=== PATIENT | male | born 1990 | race African-American/Black ===

== ENCOUNTER 2021-03-19 22:29 | Emergency (ER) | payer SELFPAY ==
[~2021-03-19] VITALS: Ht 193 cm; Wt 129.5 kg
[~2021-03-19 22:29] MED LIST: GRIS500T6 PO; NO HOME MEDS; SELE180S4 TP
[2021-03-19 22:33] VITALS: BP 125/89
[2021-03-19] MEDS ORDERED: ketorolac trometh inj. 60 MG/2 ML VIAL IM ONE (23:00)
[2021-03-19] MEDS ORDERED: HYDR-3965 PO (23:16)
[2021-03-19] MEDS ORDERED: PENI250T2 PO (23:16)
[2021-03-19] MEDS ORDERED: PRED20TA PO (23:16)
[2021-03-19] MEDS ORDERED: LIDO20SO16 PO (23:16)
== END 2021-03-19 23:50 | disposition home or self-care (01) ==
LOC: ER 22:30 → EEVIPCON 22:30 → ER 23:50
DX: S02.5XXA Fracture of tooth (traumatic), initial encounter for closed fracture (principal); K08.89 Other specified disorders of teeth and supporting structures; Z79.2 Long term (current) use of antibiotics; Z79.899 Other long term (current) drug therapy; X58.XXXA Exposure to other specified factors, initial encounter; Y93.89 Activity, other specified; Y92.89 Other specified places as the place of occurrence of the external cause; Y99.8 Other external cause status
CPT/HCPCS: 96372; 99283; J1885

== ENCOUNTER 2024-08-12 00:46 | Emergency (ER) | payer OTHER ==
[~2024-08-12] VITALS: Ht 190.5 cm; Wt 120.5 kg
[~2024-08-12 00:46] MED LIST changes: +LIDO20SO16 PO
[2024-08-12 00:51] VITALS: BP 117/88; PULSE 72; TEMP 98.6; O2SAT 98
[2024-08-12 01:19] LABS: BASOPHILS # (AUTO) 0.1 X10'3 (0-0.2); BASOPHILS % (AUTO) 1.1 % (0-1); EOSINOPHILS # (AUTO) 0.4 X10'3 (0-0.9); EOSINOPHILS % (AUTO) 8.1 % (0-6); HEMATOCRIT 41.6 % (42.0-52.0); HEMOGLOBIN 13.7 g/dl (14.0-17.9); LYMPHOCYTES # (AUTO) 2.7 X10'3 (1.1-4.8); LYMPHOCYTES % (AUTO) 49.9 % (21-51); MEAN CORPUSCULAR VOLUME 84.9 FL (78-98); MEAN PLATELET VOLUME 6.8 FL (7.4-10.4); MONOCYTES # (AUTO) 0.4 X10'3 (0-0.9); MONOCYTES % (AUTO) 7.1 % (2-12); NEUTROPHILS # (AUTO) 1.8 X10'3 (1.8-7.7); NEUTROPHILS % (AUTO) 33.8 % (42-75); PLATELET COUNT 267 X10'3 (140-440); RED CELL DISTRIBUTION WIDTH 12.7 % (11.5-14.5); WHITE BLOOD COUNT 5.4 X10'3 (4.5-11.0)
[2024-08-12 01:29] LABS: ALBUMIN 4.3 G/DL (3.4-5.0); ANION GAP 9 (8-16); BLOOD UREA NITROGEN 9 MG/DL (7-18); BUN/CREATININE RATIO 9.4 (10.0-20.0); CHLORIDE 102 MMOL/L (99-107); CREATININE 0.96 MG/DL (0.60-1.10); GLUCOSE 84 MG/DL (70-104); LIPASE 23 U/L (16-77); POTASSIUM 3.3 MMOL/L (3.5-5.1); SODIUM 137 MMOL/L (135-145); TOTAL CARBON DIOXIDE 26.2 MMOL/L (24-32); eCRCL 128 ML/MIN; eGFR > 90 ML/MIN
[2024-08-12 01:33] VITALS: RESP 16
[2024-08-12] MEDS ORDERED: DICY10CA88 PO (02:03)
[2024-08-12] MEDS ORDERED: ONDA-243 PO (02:03)
[2024-08-12] MEDS: dicyclomine 10 MG capsule PO ONE (02:04)
[2024-08-12] MEDS: ondansetron 4mg rapidly disintigrating tab PO ONE (02:04)
== END 2024-08-12 02:09 | disposition home or self-care (01) ==
LOC: ER 00:47
DX: R10.10 Upper abdominal pain, unspecified (principal); R11.2 Nausea with vomiting, unspecified
CPT/HCPCS: 36415; 80048; 83690; 85025; 99283

== ENCOUNTER 2025-08-02 04:51 | Emergency (ER) | payer BC ==
[~2025-08-02] VITALS: Ht 193 cm; Wt 120.6 kg
[~2025-08-02 04:51] MED LIST changes: +ONDA-243 PO
[2025-08-02 04:54] VITALS: TEMP 97.6
[2025-08-02 05:46] LABS: LEUKOCYTE ESTERASE ,URINE NEGATIVE (Neg); NITRITES, URINE NEGATIVE (Neg); OCCULT BLOOD,URINE NEGATIVE (Neg)
[2025-08-02 05:49] LABS: MEAN PLATELET VOLUME 7.4 FL (7.4-10.4); RED CELL DISTRIBUTION WIDTH 13.2 % (11.5-14.5)
[2025-08-02 05:58] LABS: CREATININE 0.72 MG/DL (0.60-1.10); TOTAL CARBON DIOXIDE 28.7 MMOL/L (24-32); eCRCL 174 ML/MIN; eGFR > 90 ML/MIN
[2025-08-02 05:59] LABS: UA COLLECTION TYPE CLN CATCH MIDSTREAM
--- NOTE | 2025-08-02 06:29 | Physician Documentation ---
History of Present Illness General Chief Complaint: Abdominal Pain Stated Complaint: SEE CHIEF COMPLAINT Time Seen by MD: 06:11 Primary Medical Doctor: None Mode of Arrival: Ambulatory History of Present Illness Initial Comments Patient is a 34-year-old male who complains of some intermittent abdominal pain and some dry mouth as well as a white tongue recently. The patient states his symptoms has been going on for last 3-4 days. Patient was concerned that he might have a fungal infection or other type of infection. The patient states he has had intermittent constipation and loose stool. The patient denies any fevers chills nausea or vomiting patient's symptoms are mild and persistent. Medication Reconciliation Allergies: Coded Allergies: No Known Allergies (Unverified , 08/02/25) Scheduled Griseofulvin,Microsize (Griseofulvin), 500 MG PO DAILY Lidocaine Hcl (Xylocaine Viscous), 5 ML PO Q2H PRN SORE THROAT Selenium Sulfide (Selsun Blue), 1 APPLIC TP DAILY Scheduled PRN ONDANSETRON ODT 4mg tablet (Ondansetron Odt), 1 TAB PO Q6H PRN PRN for nausea/vomiting Miscellaneous Medications Home Med List (No Home Medications), (Reported) Past Medical History Past Medical History: No Pertinent History Past Surgical History: no surgical history Alcohol Use: None Drug Use: none Lives with: Family Lives In: Home Occupation: employed Review of Systems All Other Systems at this time: Reviewed and Negative Physical Exam Physical Exam Vital Signs: Temperature: 97.6, Source: Temporal, Heart Rate: 67, Respiratory Rate: 16, BP: 127/83, Pulse Oximetry: 99, Weight: 120.600 Oxygen Flow Rate: 0 Physical Exam VITALS: Reviewed and as above. GENERAL: Alert, no apparent distress. HEENT: Normocephalic, atraumatic, PERRL, EOMI, dry mucosa, no erythema RESPIRATORY: Lungs clear, normal breath sounds, no respiratory distress. CHEST: No accessory muscle use, no retractions CV: Regular rate, rhythm, no edema, no murmur, No: JVD GI: Soft, non-tender, bowels sounds present, no rebound, guarding, or rigidity BACK: No CVA tenderness, or swelling MUSCULOSKELETAL: No deformities, no edema SKIN: Warm and dry, no rash NEURO: Oriented x4, No motor or sensory deficit PSYCH: Normal mood and affect, no agitation Progress Results/Orders Results/Orders Vital Signs 08/02/25 08/02/25 08/02/25 04:54 05:05 07:10 Temp 97.6 Pulse 67 74 Resp 16 16 16 B/P (MAP) 127/83 134/64 Pulse Ox 99 98 O2 Flow Rate 0 Laboratory Tests Test 08/02/25 05:19 White Blood Count 5.7 Red Blood Count 4.58 L Hemoglobin 12.8 L Hematocrit 38.4 L Mean Corpuscular Volume 83.8 Mean Corpuscular Hemoglobin 27.9 Mean Corpuscular Hemoglobin Concent 33.3 Red Cell Distribution Width 13.2 Platelet Count 237 Mean Platelet Volume 7.4 Neutrophils (%) (Auto) 43.4 Lymphocytes (%) (Auto) 43.9 Monocytes (%) (Auto) 7.9 Eosinophils (%) (Auto) 3.9 Basophils (%) (Auto) 0.9 Neutrophils # (Auto) 2.5 Lymphocytes # (Auto) 2.5 Monocytes # (Auto) 0.5 Eosinophils # (Auto) 0.2 Basophils # (Auto) 0.1 CBC Comment Urine Specimen Description Cln catch midstream Urine Color Straw Urine Clarity Clear Urine pH 6.0 Urine Specific [place] 1.010 Urine Protein Negative Urine Glucose (UA) Negative Urine Ketones Negative Urine Occult Blood Negative Urine Nitrite Negative Urine Bilirubin Negative Urine Urobilinogen 0.2 Urine Leukocyte Esterase Negative Urine Culture Indicated Not ind Volume Urine Centrifuged 10 ml Urine Comment Sodium Level 140 Potassium Level 3.8 Chloride Level 105 Carbon Dioxide Level 28.7 Anion Gap 6 L Blood Urea Nitrogen 8 Creatinine 0.72 Estimated GFR/1.73 m2 > 90 BUN/Creatinine Ratio 11.1 Glucose Level 83 Calcium Level 8.4 L Total Bilirubin 1.2 H Aspartate Amino Transf (AST/SGOT) 56 H Alanine Aminotransferase (ALT/SGPT) 43 Alkaline Phosphatase 66 Total Protein 7.9 Albumin 4.2 Globulin 3.7 Albumin/Globulin Ratio 1.1 Lipase 26 Chemistry Comments Medical Decision Making Additional information obtaine: old records Findings Patient with multiple complaints the patient complains of a white patchy tongue he has no patch on his tongue now his white tongue is likely related to dehydration he complains that that he was feeling dehydrated and having a dry mouth. The patient otherwise has a benign exam his previous hospitalizations has been reviewed his labs has been reviewed his pulse oximetry was interpreted as normal the patient will be advised to drink plenty of fluid and the patient will be discharged. Differential Diagnosis Thrush, gastritis GERD Departure Time of Disposition: 07:06 Disposition: 01 HOME / SELF CARE / HOMELESS Impression: Primary Impression: Dehydration Discharge Instructions: Abdominal Pain (Nonspecific), Dehydration, Adult Referrals: NO PRIMARY CARE PROVIDER (PCP) Signature Scribe Signature: no scribe Attestation: The note accurately reflects work and decisions made by me.Lisa Rangel MD 08/03/25 06:36 LISA RANGEL MD Aug 02, 2025 06:29
[2025-08-02 07:10] VITALS: BP 134/64; PULSE 74; RESP 16; O2SAT 98
== END 2025-08-02 07:11 | disposition home or self-care (01) ==
LOC: EEVIPCON 04:51 → ER 04:51
DX: E86.0 Dehydration (principal); Z79.899 Other long term (current) drug therapy
CPT/HCPCS: 36415; 80053; 81003; 83690; 85025; 99283